=== PATIENT | female | born 1990 | race Caucasian/White ===

== ENCOUNTER 2020-01-29 20:32 | Emergency (ER) | payer BC, OTHER ==
[2020-01-29 20:45] VITALS: TEMP 98; BMI 36.6
--- NOTE | 2020-01-29 20:45 | PDOC ---
Rapid Medical Evaluation Chief Complaint: CVA/TIA Time Seen by Provider: 01/29/20 20:41 Medical Evaluation: 01/29/20 20:42 29 year old c/o headache for 1 week and c/o right sided weakness x 1 day. Last Vital Signs Temp Pulse Resp BP Pulse Ox 98 F 86 18 121/73 99 01/29/20 20:43 01/29/20 20:43 01/29/20 20:43 01/29/20 20:43 01/29/20 20:43 PMHX: Pe: patient alert ox3. A; weakness; headache P; labs ekg head CT? Discharge Disposition - Diagnosis Weakness Headache Qualifiers: Headache type: unspecified Headache chronicity pattern: unspecified pattern Intractability: intractable Qualified Code(s): R51 - Headache - Referrals - Patient Instructions - Post Discharge Activity
--- NOTE | 2020-01-29 21:26 | PDOC ---
History of Present Illness - General Chief Complaint: Weakness Stated Complaint: WEAKNESS Time Seen by Provider: 01/29/20 20:41 History Source: Patient Exam Limitations: No Limitations - History of Present Illness Initial Comments: 01/29/20 21:26 29yF w PMHx obesity presenting w face twitching/tingling followed by L face, R arm/leg numbness/weakness while sitting down watching TV. Last known well 5pm today. Never had weakness before. Denies alcohol, illicit drug use, life str essors. Denies headache, vision changes, n/v, chest/ABD pain, cough, urinary/bowel mvmt changes. tPA Exclusion Checklist 0-3hr - Time Elapsed Date last known well: 01/29/20 Time last known well: 17:00 Elaspsed time: Day(s) and 6 Hour(s) and 59 Minutes - Thrombolytic Therapy Candidate Is the patient eligible for Thrombolytic Therapy?: No - Ineligibility reason(s) Reasons No tPA given: Outside of window - delayed arrival NIH Stroke Scale - Last Known Well Date/Time & Onset Date Last Known Well: 01/29/20 Time Last Known Well: 17:00 - Initial Evaluation Level of consciousness: Alert Ask patient the month and their age: Answers both correctly Ask patient to open & close eyes; make fist and let go: Obeys both correctly Best gaze (horizontal eye movement): Normal Visual field testing: No visual field loss Facial paresis (Show teeth/raise eyebrows/close eyes tight): Minor paralysis (flattened nasolabial fold, asymmetry on smiling) Motor Function: Left Arm: Normal Motor Function: Right Arm: Normal (extends arm 90 (or 45) degrees for 10 seconds without drift Motor Function: Left Leg: Normal (extends leg 30 degrees for 5 seconds without drift) Motor Function: Right Leg: Some effort against gravity Limb Ataxia: Present in one limb Sensory(Use pinprick test arms,legs,trunk,face/side to side): Mild to moderate decrease in sensation Best language (Describe picture, name items, read sentences): No Aphasia Dysarthria (read several words): Normal articulation Extinction and Inattention: No abnormality - Total Score NIH Stroke Scale Score: 5 Past History - Medical History Allergies/Adverse Reactions: Allergies Allergy/AdvReac Type Severity Reaction Status Date / Time NSAIDS (Non-Steroidal Allergy Verified 01/29/20 20:45 Anti-Inflamma Home Medications: Ambulatory Orders Acyclovir [Zovirax -] 400 mg PO 5XD 10 Days #50 capsule 01/29/20 predniSONE [Deltasone -] 60 mg PO DAILY 7 Days #7 tablet 01/29/20 COPD: No - Surgical History Abdominal Surgery: Yes (hernia repair) - Psycho-Social/Smoking History Smoking History: Never smoked - Substance Abuse Hx (Audit-C & DAST Scrn) How often the patient has a drink containing alcohol: Never Score: In Men: 4 or > Positive; In Women: 3 or > Positive: 0 Screen Result (Pos requires Nsg. Audit-10AR): Negative Review of Systems - Review of Systems Constitutional: Yes: Weakness. No: Chills, Fever HEENTM: No: Eye Pain, Recent change in vision, Nose Pain Respiratory: No: Cough, Shortness of Breath Cardiac (ROS): No: Chest Pain, Lightheadedness ABD/GI: No: Constipated, Diarrhea, Nausea, Vomiting : No: Burning, Dysuria Musculoskeletal: No: Back Pain, Joint Pain Integumentary: No: Bruising, Dryness Neurological: No: Headache, Seizure Psychiatric: No: Anxiety, Depression Endocrine: No: Intolerance to Cold, Intolerance to Heat Hematologic/Lymphatic: No: Anemia, Blood Clots *Physical Exam - Vital Signs Last Vital Signs Temp Pulse Resp BP Pulse Ox 98 F 86 18 121/73 99 01/29/20 20:43 01/29/20 20:43 01/29/20 20:43 01/29/20 20:43 01/29/20 20:43 - Physical Exam General Appearance: Yes: Nourished, Appropriately Dressed, Mild Distress, Obese HEENT: positive: EOMI, [place], Hearing Grossly Normal, Other (L eyebrow droop). n egative: Normal Voice (delayed speech), Scleral Icterus (R), Scleral Icterus (L) Respiratory/Chest: positive: Lungs Clear, Normal Breath Sounds. negative: Chest Tender, Respiratory Distress Cardiovascular: positive: Regular Rhythm, Regular Rate, S1, S2. negative: Edema, Murmur Gastrointestinal/Abdominal: positive: Normal Bowel Sounds, Flat, Soft. negative: Tender, Organomegaly Integumentary: positive: Normal Color, Warm Neurologic: positive: Fully Oriented, Alert, Numbness (L face, R arm, R leg reduced sensation), Other (cannot conduct R heel-mckinney test, normal finger-nose). negative: national account representative II-XII NML intact (L face including forehead reduced sensation), Normal Mood/Affect (delayed speech, flat affect), Motor Strength 5/5 (4/5 R arm strength, 3/5 R hip flexion strength), Confused, Disoriented ED Treatment Course - LABORATORY CBC & Chemistry Diagram: 01/29/20 21:18 01/29/20 21:18 Medical Decision Making - Medical Decision Making 01/29/20 22:[address] - no acute bleed/infarct/mass EKG - WBC 16 --- 29yF w PMHx obesity presenting w face twitching/tingling followed by L face, R arm/leg numbness/weakness while sitting down watching TV. Last known well 5pm today. Neuro exam - L face numbness (involving forehead), eyebrow asymmetry, R arm/leg numbness/weakness. Symptoms improved on re-eval, ambulated w/o support Likely psychiatric vs Zheng's palsy. Low concern for CVA (NIHSS 5, tPA not given since >3hrs, neg CT) vs (neg) Consulted Dr Gambino neuro - advised low concern for CVA, will f/u DC home w acyclovir, prednisone prescriptions, PCP and neuro referrals Discharge - Discharge Information Problems reviewed: Yes Clinical Impression/Diagnosis: Weakness, Zheng's palsy Condition: Improved Disposition: HOME - Additional Discharge Information Prescriptions: predniSONE [Deltasone -] 60 mg PO DAILY 7 Days #7 tablet Acyclovir [Zovirax -] 400 mg PO 5XD 10 Days #50 capsule - Follow up/Referral Referrals: Cal Gambino MD [Staff Physician] - Stephane Freitas MD [Staff Physician] - Neeraj Swenson DO [Staff Physician] - Stuart Ashby MD [Staff Physician] - - Patient Discharge Instructions Patient Printed Discharge Instructions: DI for Zheng's Palsy Additional Instructions: Take the prescribed Prednisone and Acyclovir as directed Please follow up with the referred neurologist Dr Gambino and primary care doctor Dr Freitas - Post Discharge Activity
[2020-01-29 21:33] LABS: BASO % 0.6 % (0-2.0); EOS % 1.7 % (0-4.5); HEMATOCRIT 38.4 % (32.4-45.2); HEMOGLOBIN 12.5 GM/dL (10.7-15.3); LYMPH % 18.4 % (8-40); MCH 28.4 pg (25.7-33.7); MCHC 32.6 g/dl (32.0-36.0); MEAN CELL VOLUME 86.9 fl (80-96); MEAN PLT VOLUME 8.4 fl (7.5-11.1); MONO % 6.9 % (3.8-10.2); NEUT % 72.4 % (42.8-82.8); PLATELET COUNT 422 K/MM3 (134-434); RBC 4.41 M/mm3 (3.60-5.2); RDW 15.6 % (11.6-15.6); WHITE BLOOD COUNT 16.8 K/mm3 (4.0-10.0)
[2020-01-29 21:49] VITALS: BP 141/82; PULSE 85
[2020-01-29 21:53] LABS: ALBUMIN 3.4 g/dl (3.4-5.0); ALK PHOS 110 U/L (45-117); ANION GAP 8 MMOL/L (8-16); BILIRUBIN,TOTAL 0.3 mg/dL (0.2-1); BLOOD UREA NITROGEN 13.9 mg/dL (7-18); CALCIUM 9.3 mg/dL (8.5-10.1); CHLORIDE 106 mmol/L (98-107); CO2 26 mmol/L (21-32); GLUCOSE,RANDOM 115 mg/dL (74-106); SGOT/AST 15 U/L (15-37); SGPT/ALT 24 U/L (13-61); SODIUM 140 mmol/L (136-145); TOT PROT 7.6 g/dl (6.4-8.2)
--- NOTE | 2020-01-29 22:15 | PDOC ---
Documentation entered by Shannan Jade SCRIBE, acting as scribe for Jolly Price MD. Jolly Price MD: This documentation has been prepared by the bravoibe, Shannan Jade SCRIBE, under my direction and personally reviewed by me in its entirety. I confirm that the documentation accurately reflects all work, treatment, procedures, and medical decision making performed by me. Attending Attestation - Resident Resident Name: Sudhakar Fernandes - ED Attending Attestation I have performed the following: I have examined & evaluated the patient, The case was reviewed & discussed with the resident, I agree w/resident's findings & plan, Exceptions are as noted - HPI HPI: 01/29/20 21:38 Patient is a 29 year old female with a significant past medical history of obesity who presents to the ED with facial twitching/tingling and right sided numbness/weakness since earlier today. Patient stated these symptoms occurred while she was watching TV (last known well 5pm) Patient denies: drug use or alcohol intakr. Allergies: NSAIDS - Physicial Exam PE: 01/29/20 22:11 29 yo female developed left sided facial weakness that started about 5 pm head ncat eyes lorena, left eyelid droop neck supple cvs [id number] lungs cta b/l abdomen soft, nontender skin warm and dry neuro axox3, left eyelid droop.no slurred speech , no ataxia 01/29/20 23:43 - Medical Decision Making 01/29/20 22:15 PMH childbirth psh hernia repair meds none 01/29/20 23:48 ct scan of head :no acute intracranial pathology, no bleed, no infarct, no masses, no midline shift pt has left eyelid droop imp Zheng's palsy case discussed with Dr Gambino and the pt can follow up with him RX prednisone/antivirals Discharge - Discharge Information Problems reviewed: Yes Clinical Impression/Diagnosis: Weakness, Zheng's palsy Condition: Improved Disposition: HOME - Additional Discharge Information Prescriptions: predniSONE [Deltasone -] 60 mg PO DAILY 7 Days #7 tablet Acyclovir [Zovirax -] 400 mg PO 5XD 10 Days #50 capsule - Follow up/Referral Referrals: Stuart Ashby MD [Staff Physician] - Stephane Freitas MD [Staff Physician] - Cal Gambino MD [Staff Physician] - Neeraj Swenson DO [Staff Physician] - - Patient Discharge Instructions Patient Printed Discharge Instructions: DI for Zheng's Palsy Additional Instructions: Take the prescribed Prednisone and Acyclovir as directed Please follow up with the referred neurologist Dr Gambino and primary care doctor Dr Freitas - Post Discharge Activity
[2020-01-29 22:56] LABS: COCAINE, UR NEGATIVE ng/ml (CUTOFF=300); METHADONE, UR NEGATIVE ng/ml (CUTOFF=300); OPIATES, URI NEGATIVE ng/ml (CUTOFF=300); PHENCYCLIDINE,URINE NEGATIVE ng/ml (CUTOFF=25); URINE AMPHETAMINES NEGATIVE ng/ml (CUTOFF=500); URINE BARBITURATES NEGATIVE ng/ml (CUTOFF=200); URINE BENZODIAZEPINES NEGATIVE ng/ml (CUTOFF=200)
[2020-01-29 23:13] LABS: EPI CELLS 28 /uL (0-25.1); HYALINE CASTS 2 /uL (0-3.1); URINE APPEARANCE CLEAR; URINE BACTERIA 573 /uL (0-1359); URINE BILIRUBIN NEGATIVE (NEGATIVE); URINE COLOR YELLOW; URINE GLUCOSE (UA) NEGATIVE (NEGATIVE); URINE KETONE NEGATIVE (NEGATIVE); URINE LEUK ESTERASE TRACE (NEGATIVE); URINE NITRITE NEGATIVE (NEGATIVE); URINE PROTEIN NEGATIVE (NEGATIVE); URINE WBC 23 /uL (0-25.8)
[2020-01-29 23:14] LABS: URINE RBC 31.7 /uL (0-23.9)
[2020-01-30] MEDS ORDERED: ACETAMINOPHEN 325 MG TABLET (FP) ONE
--- NOTE | 2020-01-30 09:34 | EKG ---
Test Reason : Blood Pressure : / mmHG Vent. Rate : 097 BPM Atrial Rate : 097 BPM P-R Int : 126 ms QRS Dur : 082 ms QT Int : 350 ms P-R-T Axes : 039 024 028 degrees QTc Int : 444 ms NORMAL SINUS RHYTHM LEFT ATRIAL ENLARGEMENT NONSPECIFIC ST ABNORMALITY ABNORMAL ECG Confirmed by MD KAY, ODALIS ([id number]) on 01/30/2020 9:33:53 AM Referred By: Confirmed By:ODALIS VILLANUEVA MD
== END 2020-01-30 00:40 | disposition home or self-care (01) ==
LOC: JER 20:32
DX: G51.0 Bell's palsy (principal)
CPT/HCPCS: 36415; 70450-TC; 80053; 80307; 81003; 82550; 84484; 84703; 85025; 93005; 93010; 99285-25

== ENCOUNTER 2020-10-15 05:43 | Emergency (ER) | payer BC, OTHER ==
[2020-10-15 06:54] VITALS: BP 106/71; PULSE 95; TEMP 98.5; BMI 36.6
[2020-10-15 08:29] LABS: THROAT:GRP A STREP Negative (Negative)
== END 2020-10-15 08:08 | disposition home or self-care (01) ==
LOC: JER 05:43
DX: J02.9 Acute pharyngitis, unspecified (principal); Z11.52 Encounter for screening for COVID-19
CPT/HCPCS: 87880; 99283-25; C9803; U0003

== ENCOUNTER 2021-08-13 09:27 | Emergency (ER) | payer BC, OTHER ==
[2021-08-13 09:41] VITALS: BP 109/65; PULSE 75; TEMP 97.9; BMI 35.2
[2021-08-13] MEDS ORDERED: SODIUM CHLORIDE 0.9% 500 ML INFUS.BAG IV ONE (10:31)
[2021-08-13] MEDS ORDERED: MECLIZINE HCL 25 MG TABLET (FP) PO ONE ×2 (10:32→14:16)
[2021-08-13] MEDS ORDERED: MECLIZINE HCL 25 MG TABLET (FP) ONE ×2 (11:37→14:38)
[2021-08-13 12:18] LABS: BASO % 0.6 % (0-2.0); EOS % 3.4 % (0-4.5); HEMOGLOBIN 12.2 GM/dL (10.7-15.3); LYMPH % 28.8 % (8-40); MCH 25.4 pg (25.7-33.7); MCHC 31.3 g/dl (32.0-36.0); MEAN PLT VOLUME 8.6 fl (7.5-11.1); MONO % 7.3 % (3.8-10.2); NEUT % 59.9 % (42.8-82.8); PLATELET COUNT 570 10^3/uL (134-434); RBC 4.81 M/mm3 (3.60-5.2); RDW 17.8 % (11.6-15.6); WHITE BLOOD COUNT 10.3 K/mm3 (4.0-10.0)
[2021-08-13 12:26] LABS: CHLORIDE 109 mmol/L (98-107); INR 0.98 (0.83-1.09); PROTHROMBIN TIME (PATIENT) 11.3 SEC (9.7-13.0); SODIUM 138 mmol/L (136-145)
[2021-08-13 12:28] LABS: ALBUMIN 3.4 g/dl (3.4-5.0); ANION GAP 0 MMOL/L (8-16); CALCIUM 9.5 mg/dL (8.5-10.1); CO2 28 mmol/L (21-32); GLUCOSE,RANDOM 84 mg/dL (74-106)
[2021-08-13 12:30] LABS: BLOOD UREA NITROGEN 14.8 mg/dL (7-18)
[2021-08-13 12:33] LABS: CREATININE 0.6 mg/dL (0.55-1.3); SGOT/AST 43 U/L (15-37); SGPT/ALT 41 U/L (13-61)
[2021-08-13 12:34] LABS: TOT PROT 7.5 g/dl (6.4-8.2)
[2021-08-13 12:35] LABS: BILIRUBIN,TOTAL 0.3 mg/dL (0.2-1)
[2021-08-13 12:36] LABS: ALK PHOS 114 U/L (45-117)
[2021-08-13 14:31] LABS: CALCIUM 9.2 mg/dL (8.5-10.1)
[2021-08-13 14:32] LABS: ALBUMIN 3.2 g/dl (3.4-5.0); BLOOD UREA NITROGEN 13.6 mg/dL (7-18)
[2021-08-13 14:35] LABS: CREATININE 0.6 mg/dL (0.55-1.3)
[2021-08-13 14:37] LABS: BILIRUBIN,TOTAL 0.2 mg/dL (0.2-1)
[2021-08-13] MEDS ORDERED: DEXTROSE 50%-WATER 25 GM/50 ML DISP.SYRIN ONE (14:48)
== END 2021-08-13 15:13 | disposition home or self-care (01) ==
LOC: JER 09:27
DX: R42 Dizziness and giddiness (principal)
CPT/HCPCS: 36415; 70450-TC; 80053; 84484; 85025; 85610; 93005; 93010; 99285-25

== ENCOUNTER 2021-09-10 21:13 | Emergency (ER) | payer BC, OTHER ==
[2021-09-10 21:21] VITALS: BP 110/68; PULSE 85; TEMP 97.8; BMI 35.7
== END 2021-09-10 22:30 | disposition home or self-care (01) ==
LOC: JERFT 21:13
DX: L42 Pityriasis rosea (principal)
CPT/HCPCS: 99283-25

== ENCOUNTER 2022-01-27 21:01 | Emergency (ER) | payer BC, OTHER ==
[2022-01-27 21:13] VITALS: BP 125/76; PULSE 89; TEMP 98.6; BMI 35.7
[2022-01-27] MEDS ORDERED: ACETAMINOPHEN 500 MG TABLET (FP) PO ONE (23:27)
== END 2022-01-28 01:10 | disposition home or self-care (01) ==
LOC: JERFT 21:01
DX: S86.012A Strain of left Achilles tendon, initial encounter (principal); X50.0XXA Overexertion from strenuous movement or load, initial encounter
CPT/HCPCS: 73610-TC-LT-FY; 99283-25

== ENCOUNTER 2022-02-18 23:59 | Emergency (ER) | payer BC, OTHER ==
[2022-02-19 00:25] VITALS: BP 115/78; PULSE 90; RESP 20; TEMP 97.6; BMI 35.7
[2022-02-19 01:54] LABS: CHLORIDE 105 mmol/L (98-107); SODIUM 140 mmol/L (136-145)
[2022-02-19 01:56] LABS: ALBUMIN 3.6 g/dl (3.4-5.0); ANION GAP 6 MMOL/L (8-16); BLOOD UREA NITROGEN 16.1 mg/dL (7-18); CALCIUM 9.3 mg/dL (8.5-10.1); CO2 30 mmol/L (21-32); GLUCOSE,RANDOM 96 mg/dL (74-106)
[2022-02-19 01:59] LABS: CREATININE 0.8 mg/dL (0.55-1.3); SGOT/AST 13 U/L (15-37); SGPT/ALT 21 U/L (13-61)
[2022-02-19 02:01] LABS: BILIRUBIN,TOTAL 0.2 mg/dL (0.2-1); TOT PROT 7.6 g/dl (6.4-8.2)
[2022-02-19 02:02] LABS: ALK PHOS 104 U/L (45-117)
[2022-02-19 02:08] LABS: BASO % 1.3 % (0-2.0); EOS % 2.6 % (0-4.5); HEMATOCRIT 37.5 % (32.4-45.2); HEMOGLOBIN 12.2 GM/dL (10.7-15.3); LYMPH % 30.9 % (8-40); MCH 27.3 pg (25.7-33.7); MCHC 32.6 g/dl (32.0-36.0); MEAN CELL VOLUME 83.6 fl (80-96); MONO % 6.7 % (3.8-10.2); NEUT % 58.5 % (42.8-82.8); PLATELET COUNT 488 10^3/uL (134-434); RBC 4.49 M/mm3 (3.60-5.2); RDW 15.5 % (11.6-15.6); WHITE BLOOD COUNT 13.8 K/mm3 (4.0-10.0)
[2022-02-19 03:04] LABS: URINE APPEARANCE CLEAR; URINE BILIRUBIN NEGATIVE (NEGATIVE); URINE COLOR YELLOW; URINE GLUCOSE (UA) NEGATIVE (NEGATIVE); URINE KETONE TRACE (NEGATIVE); URINE LEUK ESTERASE NEGATIVE (NEGATIVE); URINE NITRITE NEGATIVE (NEGATIVE); URINE PROTEIN NEGATIVE (NEGATIVE); URINE UROBILINOGEN 0.2 mg/dL (0.2-1.0)
== END 2022-02-19 03:18 | disposition left against medical advice (07) ==
LOC: JER 23:59
DX: R10.30 Lower abdominal pain, unspecified (principal)
CPT/HCPCS: 36415; 76801-TC; 80053; 81003; 84702; 84703; 85025; 86850; 86900; 86901; 87077; 87086; 99284-25

== ENCOUNTER 2022-07-03 20:01 | Emergency (ER) | payer BC, OTHER ==
[2022-07-03 20:22] VITALS: BP 111/66; PULSE 86; TEMP 97.8; BMI 37.4
[2022-07-03] MEDS ORDERED: SODIUM CHLORIDE 0.9% 500 ML INFUS.BAG IV ONE (21:11)
[2022-07-03 21:52] LABS: PH,URINE 6.5 (5.0-8.0); URINE APPEARANCE CLOUDY; URINE BILIRUBIN NEGATIVE (NEGATIVE); URINE COLOR YELLOW; URINE GLUCOSE (UA) NEGATIVE (NEGATIVE); URINE KETONE NEGATIVE (NEGATIVE); URINE LEUK ESTERASE NEGATIVE (NEGATIVE); URINE NITRITE NEGATIVE (NEGATIVE); URINE PROTEIN TRACE (NEGATIVE)
[2022-07-03 21:56] LABS: HEMATOCRIT 37.1 % (32.4-45.2); HEMOGLOBIN 11.8 GM/dL (10.7-15.3); MCH 27.3 pg (25.7-33.7); MCHC 31.8 g/dl (32.0-36.0); MEAN CELL VOLUME 85.8 fl (80-96); MEAN PLT VOLUME 8.7 fl (7.5-11.1); PLATELET COUNT 604 10^3/uL (134-434); RBC 4.33 M/mm3 (3.60-5.2); RDW 16.1 % (11.6-15.6); WHITE BLOOD COUNT 14.5 K/mm3 (4.0-10.0)
== END 2022-07-04 00:10 | disposition home or self-care (01) ==
LOC: JER 20:01
DX: O98.511 Other viral diseases complicating pregnancy, first trimester (principal); O26.891 Other specified pregnancy related conditions, first trimester; R10.30 Lower abdominal pain, unspecified; Z3A.01 Less than 8 weeks gestation of pregnancy
CPT/HCPCS: 0241U-QW; 36415; 76817-TC; 81003; 84702; 85027; 86850; 86900; 86901; 87077; 87086; 99284-25

== ENCOUNTER 2022-09-08 10:04 | Emergency (ER) | payer BC, OTHER ==
[2022-09-08 10:17] VITALS: BP 118/70; PULSE 98; RESP 18; TEMP 98.7; BMI 38.2
[2022-09-08] MEDS ORDERED: ONDANSETRON 4 MG/2 ML VIAL IVPUSH ONE (11:15)
[2022-09-08] MEDS ORDERED: SODIUM CHLORIDE 0.9% 500 ML INFUS.BAG IV ONE (11:15)
[2022-09-08] MEDS ORDERED: ONDANSETRON 4 MG/2 ML VIAL ONE (11:32)
[2022-09-08 12:06] LABS: BASO % 0.3 % (0-2.0); EOS % 1.5 % (0-4.5); HEMATOCRIT 33.7 % (32.4-45.2); HEMOGLOBIN 11.2 GM/dL (10.7-15.3); LYMPH % 12.1 % (8-40); MCH 28.4 pg (25.7-33.7); MCHC 33.3 g/dl (32.0-36.0); MEAN CELL VOLUME 85.1 fl (80-96); MEAN PLT VOLUME 8.4 fl (7.5-11.1); MONO % 3.8 % (3.8-10.2); NEUT % 82.3 % (42.8-82.8); PLATELET COUNT 558 10^3/uL (134-434); RBC 3.95 M/mm3 (3.60-5.2); WHITE BLOOD COUNT 17.6 K/mm3 (4.0-10.0)
[2022-09-08 12:36] LABS: CALCIUM 9.3 mg/dL (8.5-10.1)
[2022-09-08 12:40] LABS: CREATININE 0.6 mg/dL (0.55-1.3)
== END 2022-09-08 12:49 | disposition home or self-care (01) ==
LOC: JER 10:04
PROC: 3E033GC Introduction of Other Therapeutic Substance into Peripheral Vein, Percutaneous Approach (ICD-10-PCS; principal; 2022-09-08)
DX: O26.892 Other specified pregnancy related conditions, second trimester (principal); R10.84 Generalized abdominal pain; Z3A.16 16 weeks gestation of pregnancy
CPT/HCPCS: 36415; 76815-TC; 80048; 84703; 85025; 86850; 86900; 86901; 99284-25

== ENCOUNTER 2022-09-17 23:10 | Inpatient (IN) | payer BC, OTHER ==
[2022-09-17] MEDS ORDERED: ONDANSETRON 4 MG/2 ML VIAL IVPUSH ONE (23:55)
[2022-09-18] MEDS ORDERED: SODIUM CHLORIDE 0.9% 500 ML INFUS.BAG IV ONE (00:03)
[2022-09-18] MEDS ORDERED: SODIUM CHLORIDE 1,000 ML IV STA (00:04)
[2022-09-18] MEDS ORDERED: ACETAMINOPHEN 325 MG TABLET (FP) PO ONE (00:09)
[2022-09-18] MEDS ORDERED: ONDANSETRON 4 MG/2 ML VIAL ONE (00:29)
[2022-09-18] MEDS ORDERED: ACETAMINOPHEN 325 MG TABLET (FP) ONE (00:29)
[2022-09-18 01:24] LABS: BASO % 0.5 % (0-2.0); EOS % 0.5 % (0-4.5); HEMATOCRIT 36.4 % (32.4-45.2); HEMOGLOBIN 11.5 GM/dL (10.7-15.3); LYMPH % 9.2 % (8-40); MCH 26.3 pg (25.7-33.7); MCHC 31.6 g/dl (32.0-36.0); MEAN CELL VOLUME 83.4 fl (80-96); MEAN PLT VOLUME 8.2 fl (7.5-11.1); MONO % 2.7 % (3.8-10.2); NEUT % 87.1 % (42.8-82.8); PLATELET COUNT 554 10^3/uL (134-434); RBC 4.37 M/mm3 (3.60-5.2); RDW 15.5 % (11.6-15.6); WHITE BLOOD COUNT 16.3 K/mm3 (4.0-10.0)
[2022-09-18 01:29] LABS: EPI CELLS >36 /uL (0-25.1); HYALINE CASTS 6 /uL (0-3.1); PH,URINE 5.5 (5.0-8.0); URINE APPEARANCE CLOUDY; URINE BACTERIA 1459 /uL (0-1359); URINE BILIRUBIN 1+ (NEGATIVE); URINE COLOR DK YELLOW; URINE GLUCOSE (UA) NEGATIVE (NEGATIVE); URINE KETONE 3+ (NEGATIVE); URINE LEUK ESTERASE 1+ (NEGATIVE); URINE NITRITE NEGATIVE (NEGATIVE); URINE PROTEIN 1+ (NEGATIVE); URINE WBC 68 /uL (0-25.8)
[2022-09-18 01:54] LABS: ALBUMIN 2.7 g/dl (3.4-5.0)
[2022-09-18 01:56] LABS: CREATININE 0.7 mg/dL (0.55-1.3)
[2022-09-18 01:58] LABS: BILIRUBIN,TOTAL 0.3 mg/dL (0.2-1); TOT PROT 7.1 g/dl (6.4-8.2)
[2022-09-18] MEDS ORDERED: CEFTRIAXONE 1,000 MG in DEXTROSE 5%-WATER - 50 ML IVPB ONE (02:24)
[2022-09-18] MEDS ORDERED: CEFTRIAXONE 1 GM/50 ML BAG ONE (02:27)
[2022-09-18] MEDS ORDERED: ONDANSETRON 4 MG/2 ML VIAL IVPUSH PRN (05:12)
[2022-09-18] MEDS ORDERED: DEXTROSE 5%-LACTATED RINGERS 1,000 ML IV SCH (05:30)
[2022-09-18] MEDS ORDERED: DEXTROSE 5%-NORMAL SALINE 1,000 ML IV SCH (06:00)
[2022-09-18] MEDS ORDERED: ACETAMINOPHEN 500 MG TABLET (FP) PO PRN ×3 (07:52→07:56)
[2022-09-18 08:57] VITALS: BMI 39.5
[2022-09-18] MEDS ORDERED: PYRIDOXINE HCL 100 MG/1 ML VIAL IM SCH (10:00)
[2022-09-18] MEDS ORDERED: PRENATAL VITAMINS W/ FOLIC ACID TABLET (FP) PO SCH (10:00)
[2022-09-18] MEDS: PANTOPRAZOLE SODIUM 40 MG VIAL IVPUSH SCH (10:06)
[2022-09-18] MEDS: ENOXAPARIN NA (PORCINE) 40 MG/0.4 ML DISP.SYRIN SQ SCH (10:06)
[2022-09-18] MEDS: CEFTRIAXONE 1 GM in DEXTROSE 5%-WATER - 50 ML IVPB SCH (10:07)
[2022-09-18 23:32] VITALS: RESP 18
[2022-09-19] MEDS: CEFTRIAXONE 1 GM in DEXTROSE 5%-WATER - 50 ML IVPB SCH (09:34)
[2022-09-19] MEDS: PANTOPRAZOLE SODIUM 40 MG VIAL IVPUSH SCH (09:36)
[2022-09-19] MEDS: ENOXAPARIN NA (PORCINE) 40 MG/0.4 ML DISP.SYRIN SQ SCH ×2 (09:36→09:44)
[2022-09-19 09:46] VITALS: BP 111/61; PULSE 80; TEMP 98.4
[2022-09-19 10:18] LABS: BASO % 0.3 % (0-2.0); EOS % 1.3 % (0-4.5); HEMATOCRIT 32.2 % (32.4-45.2); HEMOGLOBIN 10.4 GM/dL (10.7-15.3); LYMPH % 17.1 % (8-40); MCH 27.2 pg (25.7-33.7); MCHC 32.4 g/dl (32.0-36.0); MEAN CELL VOLUME 83.9 fl (80-96); MEAN PLT VOLUME 7.9 fl (7.5-11.1); MONO % 6.7 % (3.8-10.2); NEUT % 74.6 % (42.8-82.8); PLATELET COUNT 465 10^3/uL (134-434); RBC 3.84 M/mm3 (3.60-5.2); RDW 15.8 % (11.6-15.6); WHITE BLOOD COUNT 10.8 K/mm3 (4.0-10.0)
[2022-09-19 10:32] LABS: ALBUMIN 2.2 g/dl (3.4-5.0); CALCIUM 7.8 mg/dL (8.5-10.1)
[2022-09-19 10:33] LABS: MAGNESIUM 2.1 mg/dL (1.8-2.4)
[2022-09-19 10:35] LABS: CREATININE 0.5 mg/dL (0.55-1.3)
[2022-09-19 10:36] LABS: PHOSPHOROUS 2.7 mg/dL (2.5-4.9)
[2022-09-19 10:37] LABS: BILIRUBIN,TOTAL 0.4 mg/dL (0.2-1); TOT PROT 5.8 g/dl (6.4-8.2)
== END 2022-09-19 12:53 | disposition short-term general hospital (02) | DRG 832 ==
LOC: JER 23:10 → JERBED 09-18 04:02 → OBSVTOIN 09-18 05:08 → J6S 09-18 08:13
PROVIDERS: ADMIT Internal Medicine; ATTEND Nurse Practitioner Family
DX: O23.42 Unspecified infection of urinary tract in pregnancy, second trimester (principal); N39.0 Urinary tract infection, site not specified; Z3A.17 17 weeks gestation of pregnancy
CPT/HCPCS: 0241U-QW; 36415; 76815-TC; 80053; 81003; 83605; 83690; 83735; 84100; 84702; 85025; 86850; 86900; 86901; 87086; 93005; 93010; 99285-25; G0378